=== PATIENT | female | born 1945 | race African-American/Black ===

== ENCOUNTER 2016-10-14 23:02 | Inpatient (IN) | payer OTHER ==
--- NOTE | 2016-10-14 23:54 | PDOC ---
History of Present Illness <Pauline Clinton - Last Filed: 10/15/16 00:22> - General History Source: Patient <DavidHarshad guerrero - Last Filed: 10/15/16 02:50> - General History Source: Patient, Family (Daughter) Exam Limitations: No Limitations - History of Present Illness Initial Comments: 10/15/16 00:19 The patient is a 70 year old female with a pertinent PMH of HTN and left-sided breast cancer who presents to the ED today with palpitations and lightheadedness this evening. The daughter states that after the patient had her radiation that the patient felt like her heart was going fast and had complaints of lightheadedness. She also noted that the patient felt weak and had to sit down. The palpitations and lightheadedness lasted for 30 minutes before she called the ambulance. The patient denies chest pain, SOB, diaphoresis , and LOC. The patient lives at home with her daughter. Denies: nausea, vomiting, diarrhea, fever, chills and cough. Surgical Hx: Lumpectomy, total knee replacement PCP: [facility] <Sally Schumacher - Last Filed: 10/15/16 02:53> - General Chief Complaint: Irregular Heart Beat Stated Complaint: PALPITATIONS Time Seen by Provider: 10/14/16 23:50 Past History <Pauline Clinton - Last Filed: 10/15/16 00:22> - Past Medical History HTN: Yes - Immunization History Immunization Up to Date: Yes - Psycho/Social/Smoking Cessation Hx Anxiety: No Suicidal Ideation: No Smoking History: Never smoked Have you smoked in the past 12 months: No Hx Alcohol Use: No Drug/Substance Use Hx: No Substance Use Type: None <Harshad Tyler - Last Filed: 10/15/16 02:50> <Sally Schumacher - Last Filed: 10/15/16 02:53> - Past Medical History Allergies/Adverse Reactions: Allergies Allergy/AdvReac Type Severity Reaction Status Date / Time No Known Allergies Allergy Verified 10/14/16 23:41 Home Medications: Ambulatory Orders Amlodipine Besylate 5 mg PO 10/14/16 Losartan 50Mg/Hctz 12.5MG [Hyzaar -] 12.5 mg PO DAILY 10/14/16 Review of Systems - Review of Systems Able to Perform ROS?: Yes Comments:: 10/15/16 00:19 COMPREHENSIVE ROS CONSTITUTIONAL: Absent: fever, chills, diaphoresis, malaise, loss of appetite HEENT: Absent: rhinorrhea, nasal congestion, throat pain, throat swelling, difficulty swallowing, mouth swelling, ear pain, eye pain, visual Changes CARDIOVASCULAR: +Lightheadedness, palpitations. Absent: chest pain, syncope, irregular heart rate, peripheral edema RESPIRATORY: Absent: cough, shortness of breath, dyspnea with exertion, orthopnea, wheezing, stridor, hemoptysis GASTROINTESTINAL: Absent: abdominal pain, abdominal distension, nausea, vomiting, diarrhea, constipation, melena, hematochezia GENITOURINARY: Absent: dysuria, frequency, urgency, hesitancy, hematuria, flank pain, genital pain MUSCULOSKELETAL: Absent: myalgia, arthralgia, joint swelling SKIN: Absent: rash, itching, pallor NEUROLOGIC: Absent: headache, focal weakness or paresthesias, dizziness, unsteady gait, seizure, mental status changes, bladder or bowel incontinence PSYCHIATRIC: Absent: anxiety, depression, suicidal or homicidal ideation, hallucinations. <Sally Schumacher - Last Filed: 10/15/16 02:53> *Physical Exam - Vital Signs Last Vital Signs Temp Pulse Resp BP Pulse Ox 98.7 F 113 H 18 95/64 98 10/14/16 23:37 10/14/16 23:37 10/14/16 23:37 10/14/16 23:37 10/14/16 23:37 <Pauline Clinton - Last Filed: 10/15/16 00:22> - Vital Signs Last Vital Signs Temp Pulse Resp BP Pulse Ox 98.7 F 113 H 18 95/64 98 10/14/16 23:37 10/14/16 23:37 10/14/16 23:37 10/14/16 23:37 10/14/16 23:37 <Harshad Tyler - Last Filed: 10/15/16 02:50> - Vital Signs Last Vital Signs Temp Pulse Resp BP Pulse Ox 98.7 F 113 H 18 95/64 98 10/14/16 23:37 10/14/16 23:37 10/14/16 23:37 10/14/16 23:37 10/14/16 23:37 - Physical Exam Comments: 10/15/16 00:20 COMPREHENSIVE PE GENERAL: Well developed, well nourished. Awake and alert. No acute distress. HEENT: Normocephalic, atraumatic. PERRLA, EOMI. No conjunctival pallor. Sclera are non- icteric. Moist mucous membranes. Oropharynx is clear. NECK: Supple. Full ROM. No JVD. Carotid pulses 2+ and symmetric, without bruits. No thyromegaly. No lymphadenopathy. CARDIOVASCULAR: Tachycardia. Regular rhythm. No murmurs, rubs, or gallops. Distal pulses are 2+ and symmetric. PULMONARY: No evidence of respiratory distress. Bibasilar crackles left greater than right. No wheezing, rales or rhonchi. ABDOMINAL: Soft. Non-tender. Non-distended. No rebound or guarding. No organomegaly. Normoactive bowel sounds. MUSCULOSKELETAL Normal range of motion at all joints. No bony deformities or tenderness. No CVA tenderness. EXTREMITIES: No cyanosis. No clubbing. No edema. No calf tenderness. SKIN: Warm and dry. Normal capillary refill. No rashes. No jaundice. NEUROLOGICAL: Alert, awake, appropriate. Cranial nerves 2-12 intact. Moving all extremities. No focal neurological deficits. PSYCHIATRIC: Cooperative. Good eye contact. Appropriate mood and affect. <Sally Schumacher - Last Filed: 10/15/16 02:53> Heart Score/ECG Review - ECG Impressions Comment:: 10/15/16 00:22 Atrial fibrillation with rapid ventricular complexes @113bpm Abnormal ECG <Pauline Clinton - Last Filed: 10/15/16 00:22> ED Treatment Course - LABORATORY CBC & Chemistry Diagram: 10/15/16 00:01 10/15/16 00:01 - ADDITIONAL ORDERS Additional order review: 10/15/16 00:01 RBC 3.60 MCV 88.9 MCHC 31.4 L RDW 16.9 H MPV 9.9 Neutrophils % 57.7 Lymphocytes % 24.4 Monocytes % 12.8 H Eosinophils % 4.2 Basophils % 0.9 <Pauline Clinton - Last Filed: 10/15/16 00:22> - LABORATORY CBC & Chemistry Diagram: 10/15/16 00:01 10/15/16 00:01 <Harshad Tyler - Last Filed: 10/15/16 02:50> - LABORATORY CBC & Chemistry Diagram: 10/15/16 00:01 10/15/16 00:01 - ADDITIONAL ORDERS Additional order review: 10/15/16 00:01 RBC 3.60 MCV 88.9 MCHC 31.4 L RDW 16.9 H MPV 9.9 Neutrophils % 57.7 Lymphocytes % 24.4 Monocytes % 12.8 H Eosinophils % 4.2 Basophils % 0.9 - RADIOLOGY Radiograph Interpretation: 10/15/16 02:52 EXAM: CTA CHEST Reviewed by imaging gas station clerk: Nodular scarring right middle lobe up to 1 cm thick and smaller nodules right upper and lower lobes, advise follow-up. No pulmonary embolism. No aortic dissection or aneurysm. Smal reticulonodular densities right upper lobe, probably atypical infection. No focal lung consolidation or pleural effusions. Small bilateral Bochdalek hernias containing fat. Small right renal cyst. Subcutaneous edema. <Sally Schumacher - Last Filed: 10/15/16 02:53> Medical Decision Making - Medical Decision Making 10/15/16 00:32 Dr. Tyler: The scribe's documentation has been prepared under my direction and personally reviewed by me in its entirery. I confirm that the note above accurately reflects all work, treatment, procedures, and medical decision making performed by me. 10/15/16 02:50 No PE see on Chest CTA. Pt heart improved. Pt ti be admitted to med surg <Harshad Tyler - Last Filed: 10/15/16 02:50> *DC/Admit/Observation/Transfer <Pauline Clinton - Last Filed: 10/15/16 00:22> - Discharge Dispostion Admit: Yes <Harshad Tyler - Last Filed: 10/15/16 02:50> - Attestations Scribe Attestion: 10/15/16 00:20 Documentation prepared by Sally Schumacher, acting as medical physics researcher for Harshad Tyler MD/DO. <Sally Schumacher - Last Filed: 10/15/16 02:53> Diagnosis at time of Disposition: New onset a-fib
[2016-10-14] MEDS ORDERED: SODIUM CHLORIDE 1,000 ML IV STA (23:56)
[2016-10-15 00:08] LABS: BASOPHIL 0.9 % (0-2.0); EOSINOPHIL 4.2 % (0-4.5); MCH 27.9 pg (25.7-33.7); MCHC 31.4 g/dl (32.0-36.0); MEAN CELL VOLUME 88.9 fl (80-96); MEAN PLT VOLUME 9.9 fl (7.5-11.1); NEUTROPHILS 57.7 % (42.8-82.8); PLATELET COUNT 164 K/MM3 (134-434); RDW 16.9 % (11.6-15.6); WHITE BLOOD COUNT 3.6 K/mm3 (4.0-10.0)
[2016-10-15 00:20] LABS: INR 1.21 (0.82-1.09); PROTHROMBIN TIME (PATIENT) 13.4 SEC (9.98-11.88)
[2016-10-15] MEDS ORDERED: dilTIAZem HCL 50 MG/10 ML - 10 ML VIAL ONE (00:27)
[2016-10-15] MEDS ORDERED: dilTIAZem HCL 50 MG/10 ML - 10 ML VIAL IVPUSH ONE (00:27)
[2016-10-15 00:29] LABS: ALBUMIN 3.2 g/dl (3.4-5.0); ANION GAP 9 (8-16); BILIRUBIN,TOTAL 0.3 mg/dL (0.2-1.0); CALCIUM 8.3 mg/dL (8.5-10.1); CO2 30 mmol/L (21-32); CREATININE 1.1 mg/dL (0.55-1.02); GLUCOSE,RANDOM 125 mg/dL (74-106); MAGNESIUM 1.8 mg/dL (1.8-2.4); SGOT/AST 18 U/L (15-37); SGPT/ALT 16 U/L (12-78); TOT PROT 5.9 g/dl (6.4-8.2)
[2016-10-15 00:32] LABS: ALK PHOS 64 U/L (45-117); TROPONIN I < 0.02 ng/ml (0.00-0.05)
--- NOTE | 2016-10-15 03:37 | HP ---
CHIEF COMPLAINT: "i had palpitations" PCP: Dr Shruthi Rodriguez HISTORY OF PRESENT ILLNESS: This is a 70 yo F with pmh of HTN, recent pericarditis s/p resolution on TTE 1 w ago, and Stage 2b L breast ca s/p lumpectomy, chemo (4 sessions finished 2 w ago) and radiation (5 sessions), who presents to ED with daughter due to new onset palpitations weakness and lightheadedness, one hour after radiation. She has a chronic cough due to postnasal drip for which she sees a economic development manager. She denied chest pain, LOC, LE edema, sob, confusion or h/a. She denies history of chest pain, palpitations or cardiac problems. In ED she was found to have a fib with RVR rate 113, rate controlled with cardizem. Her BP dropped to 87 systolic after cardizem but went up to 113/76 after NS IVF. She is now asymptomatic. ER course was notable for: (1)labs (2)CXR, CTA (3)cardizem, NS Recent Travel: denies PAST MEDICAL HISTORY: as above PAST SURGICAL HISTORY: lumpectomy, b/l knee replacement 2008 Social History: lives with daughter Smoking: denies Alcohol:denies Drugs: denies Family History: no history of arrythmia, CHF, CAD or CA Allergies No Known Allergies Allergy (Verified 10/14/16 23:41) HOME MEDICATIONS: Medication Instructions Recorded Amlodipine Besylate 5 mg PO 10/14/16 Losartan 50Mg/Hctz 12.5MG [Hyzaar 12.5 mg PO DAILY 10/14/16 -] REVIEW OF SYSTEMS CONSTITUTIONAL: Absent: fever, chills, loss of appetite, weight change HEENT: Absent: throat pain, difficulty swallowing, visual changes CARDIOVASCULAR: Absent: chest pain, syncope, peripheral edema RESPIRATORY: Absent: shortness of breath, orthopnea, wheezing, stridor, hemoptysis GASTROINTESTINAL: Absent: abdominal pain, abdominal distension, nausea, vomiting, diarrhea, constipation GENITOURINARY: Absent: dysuria,flank pain MUSCULOSKELETAL: Absent: myalgia, arthralgia SKIN: Absent: rash HEMATOLOGIC/IMMUNOLOGIC: Absent: easy bleeding, easy bruising ENDOCRINE: Absent: unexplained weight gain, unexplained weight loss NEUROLOGIC: Absent: headache, focal weakness or paresthesias, seizure, mental status changes PSYCHIATRIC: Absent: anxiety, depression PHYSICAL EXAMINATION Vital Signs - 24 hr 10/15/16 02:58 Pulse Rate [ 83 Apical] Respiratory 20 Rate Blood Pressure 113/76 [Right Arm] O2 Sat by Pulse 98 Oximetry (%) Laboratory Tests 10/15/16 10/15/16 10/15/16 00:01 00:01 00:01 WBC 3.6 L Hgb 10.0 L Hct 32.0 L Plt Count 164 INR 1.21 H D-Dimer 1382 H Sodium 142 Potassium 3.6 Chloride 103 Carbon Dioxide 30 Anion Gap 9 BUN 15 Creatinine 1.1 H Creat Clearance w eGFR 49.39 Random Glucose 125 H Lactic Acid Calcium 8.3 L Magnesium 1.8 Total Bilirubin 0.3 AST 18 ALT 16 Alkaline Phosphatase 64 Creatine Kinase 93 Troponin I < 0.02 Total Protein 5.9 L Albumin 3.2 L 10/15/16 01:10 WBC Hgb Hct Plt Count INR D-Dimer Sodium Potassium Chloride Carbon Dioxide Anion Gap BUN Creatinine Creat Clearance w eGFR Random Glucose Lactic Acid 1.364 Calcium Magnesium Total Bilirubin AST ALT Alkaline Phosphatase Creatine Kinase Troponin I Total Protein Albumin GENERAL: Awake, alert, and fully oriented, in no acute distress. HEAD: Normal with no signs of trauma. EYES: Pupils equal, round and reactive to light, extraocular movements intact, sclera anicteric, conjunctiva clear. EARS, NOSE, THROAT: Moist mucous membranes. NECK: supple without JVD LUNGS: Breath sounds equal, clear to auscultation bilaterally. HEART: Regular rate and irregularly irregular rhythm, normal S1 and S2 ABDOMEN: Soft, nontender, not distended, normoactive bowel sounds MUSCULOSKELETAL: No CVA tenderness. UPPER EXTREMITIES: 2+ pulses, warm, well-perfused. No cyanosis. No peripheral edema. LOWER EXTREMITIES: 2+ pulses, warm, well-perfused. No calf tenderness. No peripheral edema. NEUROLOGICAL: Cranial nerves II-XII grossly intact. Normal speech. PSYCHIATRIC: Cooperative. Good eye contact. Appropriate mood and affect. SKIN: Warm, dry ASSESSMENT/PLAN: This is a 70 yo F with pmh of HTN and Stage 2b L breast ca s/p lumpectomy, chemo (4 sessions finished 2 w ago) and radiation (5 sessions), who presents to ED with daughter due to new onset palpitations weakness and lightheadedness, one hour after radiation. EKG: a fib with RVR rate 113 CXR unremarkable Chest CTA no PE New onset atrial fibrillation with RVR -CHADSVAS=3 -rate controlled with cardizem 10, 50 -currently asymptomatic -cardiology consult -tele monitoring -need for a/c discussed -TTE done 1 w ago, contact PCP for results -lipid panel, a1c, tfts -joe 120 BEAN vs CKD -creat 1.1 -IVF hydration Hypotension -associated with cardizem -now normotensive -IV hydration HTN -normotensive; hold BP meds for now Stage 2b L breast ca -s/p lumpectomy, chemo (4 sessions finished 2 w ago) and radiation (5 sessions) -f/u with oncology outpatient FEN NS @100 Lytes stable Joe, diet Na restricted diet Dispo: admit to tele. Problem List - Problem (1) New onset a-fib Code(s): I48.91 - UNSPECIFIED ATRIAL FIBRILLATION (2) HTN (hypertension) Code(s): I10 - ESSENTIAL (PRIMARY) HYPERTENSION (3) Breast cancer Code(s): C50.919 - MALIGNANT NEOPLASM OF UNSP SITE OF UNSPECIFIED FEMALE BREAST Visit type - Emergency Visit Emergency Visit: Yes ED Registration Date: 10/15/16 Care time: The patient presented to the Emergency Department on the above date and was hospitalized for further evaluation of their emergent condition. - New Patient This patient is new to me today: Yes Date on this admission: 10/15/16 - Critical Care Critical Care patient: No
--- NOTE | 2016-10-15 03:37 | PN ---
<Ann Marie Arthur - Last Filed: 10/15/16 03:37> Teaching Attending Note Name of Resident: Bella Anna <Beverly Herrera - Last Filed: 10/15/16 05:01> Teaching Attending Note ATTENDING PHYSICIAN STATEMENT I saw and evaluated the patient. I reviewed the resident's note and discussed the case with the resident. I agree with the resident's findings and plan as documented. SUBJECTIVE: 70 year old female who presents with palpitations and lightheadedness since this evening that lasted for 30 minutes. Patient notes that the symptoms developed shortly after her radiation treatment today at 6 pm. Patient had an ECHO done 1 month ago and as per daughter she reports that it showed pericarditis and was repeated 10 days ago and according to daughter the pericarditis resolved on new ECHO. As per daughter the patient has possible history of chronic bronchitis or bronchiectasis? and has had productive cough for over 10 year patient states that she has yellow sputum. The patient denies fever, chills, chest pain, SOB, diaphoresis, nausea, vomiting , diarrhea and LOC. PMH: HTN, left-sided breast ca s/p lumpectomy (chemo 2 weeks ago radiation session x5), s/p history of pericarditis, chronic bronchitis, ?bronchiectasis. PSH: Lumpectomy with lymph node resection, total knee replacement FMH: Not contributory SH: Denies smoking, alcohol use, illicit drug use, lives at home with daughter. 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 PERRLA, EOMI. Moist mucosa. No JVD LUNGS: Decreased breath sounds , Right lower lobe wheezing. No distress, speaks full sentences. HEART: Regular rate and rhythm, normal S1 and S2, no murmurs, rubs or gallops, peripheral pulses normal and equal bilaterally. ABDOMEN: Soft, nontender, normoactive bowel sounds. No guarding, no rebound. No masses EXTREMITIES: Normal inspection, Normal range of motion, no edema. No clubbing or cyanosis. NEUROLOGICAL: Cranial nerves II through XII grossly intact. Normal speech, normal gait, no focal sensorimotor deficits SKIN: Dimpling of left breast tissue growth longitudinal scar about 5-6 cm, slightly retracted nipple LT Warm, Dry, normal turgor, no rashes or lesions noted. LYMPH: No palpable cervical or axillary lymph nodes. LABS: CBCD WBC 3.6 K/mm3 (4.0-10.0) L 10/15/16 00:01 RBC 3.60 M/mm3 (3.60-5.2) 10/15/16 00:01 Hgb 10.0 GM/dL (10.7-15.3) L 10/15/16 00:01 Hct 32.0 % (32.4-45.2) L 10/15/16 00:01 MCV 88.9 fl (80-96) 10/15/16 00:01 MCHC 31.4 g/dl (32.0-36.0) L 10/15/16 00:01 RDW 16.9 % (11.6-15.6) H 10/15/16 00:01 Plt Count 164 K/MM3 (134-434) 10/15/16 00:01 MPV 9.9 fl (7.5-11.1) 10/15/16 00:01 CMP Sodium 142 mmol/L (136-145) 10/15/16 00:01 Potassium 3.6 mmol/L (3.5-5.1) 10/15/16 00:01 Chloride 103 mmol/L (98-107) 10/15/16 00:01 Carbon Dioxide 30 mmol/L (21-32) 10/15/16 00:01 Anion Gap 9 (8-16) 10/15/16 00:01 BUN 15 mg/dL (7-18) 10/15/16 00:01 Creatinine 1.1 mg/dL (0.55-1.02) H 10/15/16 00:01 Creat Clearance w eGFR 49.39 (>60) 10/15/16 00:01 Calcium 8.3 mg/dL (8.5-10.1) L 10/15/16 00:01 Total Bilirubin 0.3 mg/dL (0.2-1.0) 10/15/16 00:01 AST 18 U/L (15-37) 10/15/16 00:01 ALT 16 U/L (12-78) 10/15/16 00:01 Alkaline Phosphatase 64 U/L (45-117) 10/15/16 00:01 Total Protein 5.9 g/dl (6.4-8.2) L 10/15/16 00:01 Albumin 3.2 g/dl (3.4-5.0) L 10/15/16 00:01 IMAGING: CTA CHEST Impression: Nodular scarring right middle lobe up to 1 cm thick and smaller nodules right upper and lower lobes, advise follow-up. No pulmonary embolism. No aortic dissection or aneurysm. Smal reticulonodular densities right upper lobe, probably atypical infection. No focal lung consolidation or pleural effusions. Small bilateral Bochdalek hernias containing fat. Small right renal cyst. Subcutaneous edema. ASSESSMENT AND PLAN: New onset Afib possible secondary to radiation therapy - Rate control with Cardizem 120 mg PO daily - Admit to Tele - ECHO done last week follow up with PMD for results - Lovenox 1.5 mg/kg q24h daily - Cardiology consult consider anticoagulation therapy as CHADS-VASc of 3 - Repeat cardiac enzymes - TSH levels BEAN vs. CKD - IVF - Repeat BMP Breast cancer - s/p radiation and chemotherapy Chronic bronchitis/bronchiectasis - Follow up with manager of financial for medical records - Pulmonary consult Normocytic anemia most likely secondary to anemia of chronic disease vs iron deficiency HTN - confirm home medication - continue Hydrochlorothiazide 12.5 mg - hold Losartan for possible BEAN Documentation prepared by Beverly Herrera, acting as medical office technology instructor for Ann Marie Arthur M.D.
[2016-10-15] MEDS ORDERED: SODIUM CHLORIDE 1,000 ML IV SCH (03:45)
[2016-10-15 06:48] LABS: MCH 29.2 pg (25.7-33.7); MCHC 32.7 g/dl (32.0-36.0); MEAN CELL VOLUME 89.3 fl (80-96); MEAN PLT VOLUME 8.8 fl (7.5-11.1); PLATELET COUNT 149 K/MM3 (134-434); RDW 17.4 % (11.6-15.6); WHITE BLOOD COUNT 3.5 K/mm3 (4.0-10.0)
[2016-10-15] MEDS ORDERED: ENOXAPARIN NA (PORCINE) 60 MG/0.6 ML DISP.SYRIN SQ ONE (09:09)
--- NOTE | 2016-10-15 09:13 | PN ---
Progress Note (short form) - Note Progress Note: Cardiology Consult Dicated 70F with Breast CA s/p lumpectomy, chemo undergoing XR, HTN presented to ER with dizziness and palpitations associated with dyspnea and was found to be in AF at 113 bpm (of unclear onset). CTA negative for PE. Now in NSR. REC: 1. Tele 2. Echo for EF assessment 3. Check TSH 4. Cycle cardiac enzymes 5. CHADS 2 Vasc score is 3 (HTN, female, age >65)): merits AC, at least for one month. Will need close outpatient f/u and monitoring to assure AF not paroxysmal prior to making final decision re length of AC.
[2016-10-15 09:32] LABS: CREATININE 0.8 mg/dL (0.55-1.02); PHOSPHOROUS 3.6 mg/dL (2.5-4.9)
--- NOTE | 2016-10-15 09:49 | CONS ---
DATE OF CONSULTATION: 10/15/2016 REASON FOR CONSULTATION: The consultation is requested by Ankur Burgos MD, for atrial fibrillation. HISTORY OF PRESENT ILLNESS: The patient is a 70-year-old female with past medical history of breast cancer status post lumpectomy, chemotherapy, currently undergoing radiation; hypertension, who presented to the emergency room yesterday after her radiation therapy complaining of dizziness, palpitations, associated shortness of breath, and she was found to be in atrial fibrillation at 113 beats per minute, of unclear onset. The patient denies prior history of atrial fibrillation. She states that she began feeling this way yesterday after radiation but has had intermittent palpitations over the last few weeks. She denies prior myocardial infarction or coronary history. She has no history of prior coronary interventions. Currently she is in the emergency department in no distress, back in normal sinus rhythm. She was given diltiazem 10 mg IV in the emergency department. PAST MEDICAL HISTORY: As above. MEDICATIONS: Her home medications include: 1. Hyzaar 50/12.5 daily. 2. Amlodipine 5 mg daily. ALLERGIES: She has no known drug allergies. FAMILY HISTORY: Noncontributory. SOCIAL HISTORY: She is a nonsmoker. No illicit drugs, no alcohol. PHYSICAL EXAMINATION: Vital Signs: Temperature 98.7, pulse 72, currently in sinus. Blood pressure 122/76. Oxygen saturation 99% on room air. Neck: No JVD. Heart: S1, S2 regular, no murmurs. Chest: Bilateral rhonchi. No active wheezing, no rales. Abdomen: Soft, nontender. Extremities: Warm, no edema. There is an old left total knee replacement scar which appears clean, dry, and intact. LABORATORY: CBC: White count 3.5, hematocrit 28.4, platelets 149. D-dimer was elevated at 1382, which prompted a CTA of the chest, which was negative for pulmonary embolism and showed possible bilateral nodular and linear opacities, possibly infectious. Her EKG on presentation showed atrial fibrillation at 113 beats per minute with normal axis, no Q waves. Nonspecific ST changes. Blood culture are pending. IMPRESSION: A 70-year-old female with history of breast cancer status post lumpectomy, chemotherapy, currently undergoing radiation, presented with palpitations, shortness of breath and dizziness, found to be in atrial fibrillation of unclear onset. CT angiogram negative for pulmonary embolism, now back in normal sinus rhythm. RECOMMENDATIONS: 1. Telemetry. 2. [id number] is 3, which merits anticoagulation for at least 1 month. She will need close outpatient monitoring to assure there is no recurrence. Length of anticoagulation to be determined pending clinical course over the next month. 3. Echocardiogram for assessment of left ventricular function. 4. TSH. 5. Cycle cardiac enzymes. 6. Will start on Cardizem CD 120 mg daily to prevent further recurrence. Thank you for the consultation. ROD ADAMES M.D. [id number]
[2016-10-15] MEDS ORDERED: ENOXAPARIN NA (PORCINE) 120 MG/0.8 ML DISP.SYRIN SQ SCH (10:00)
[2016-10-15] MEDS ORDERED: ENOXAPARIN NA (PORCINE) 40 MG/0.4 ML DISP.SYRIN SQ SCH (10:00)
[2016-10-15 11:17] VITALS: BMI 25.8
[2016-10-15 11:34] LABS: TROPONIN I 0.2 ng/ml (0.00-0.05)
[2016-10-15] MEDS ORDERED: INFLUENZA VACCINE 45 MCG/0.5 ML (MDV 16-17) IM ONE (12:00)
[2016-10-15] MEDS ORDERED: PNEUMOC 13-VAL CONJ-DIP CRM/PF 0.5 ML DISP.SYRIN IM ONE (12:00)
--- NOTE | 2016-10-15 14:40 | PN ---
Physical Exam: SUBJECTIVE: Patient seen and examined OBJECTIVE: Vital Signs Period Temp Pulse Resp BP Sys/Gallegos Pulse Ox Last 24 Hr 98.2 F-98.4 F 67-88 18-20 112-133/76-82 99-100 GENERAL: Awake, alert, and fully oriented, in no acute distress. HEAD: Normal with no signs of trauma. EYES: Pupils equal, round and reactive to light, extraocular movements intact, sclera anicteric, conjunctiva clear. EARS, NOSE, THROAT: Moist mucous membranes. NECK: supple without JVD LUNGS: Breath sounds equal, clear to auscultation bilaterally. HEART: Regular rate and irregularly irregular rhythm, normal S1 and S2 ABDOMEN: Soft, nontender, not distended, normoactive bowel sounds MUSCULOSKELETAL: No CVA tenderness. UPPER EXTREMITIES: 2+ pulses, warm, well-perfused. No cyanosis. No peripheral edema. LOWER EXTREMITIES: 2+ pulses, warm, well-perfused. No calf tenderness. No peripheral edema. NEUROLOGICAL: Cranial nerves II-XII grossly intact. Normal speech. PSYCHIATRIC: Cooperative. Good eye contact. Appropriate mood and affect. SKIN: Warm, dry Laboratory Results - last 24 hr 10/15/16 10/15/16 10/15/16 06:30 06:30 06:30 WBC 3.5 L RBC 3.18 L Hgb 9.3 L Hct 28.4 L MCV 89.3 MCHC 32.7 RDW 17.4 H Plt Count 149 MPV 8.8 D Sodium 143 Potassium 3.7 Chloride 108 H Carbon Dioxide 30 Anion Gap 5 L BUN 16 Creatinine 0.8 D Random Glucose 98 D Hemoglobin A1c % 5.5 Calcium 8.0 L Phosphorus 3.6 Magnesium 2.0 Creatine Kinase 81 Troponin I 0.20 H Triglycerides 37 Cholesterol 156 Total LDL Cholesterol 77 HDL Cholesterol 72 H Active Medications Generic Name Dose Route Start Last Admin Trade Name Freq PRN Reason Stop Dose Admin Diltiazem HCl 120 mg 10/15/16 10:00 10/15/16 11:50 Cardizem Cd - PO 120 mg DAILY [facility] Administration Enoxaparin Sodium 120 mg 10/15/16 10:00 10/15/16 09:11 Lovenox - SQ 120 mg DAILY [facility] Administration Sodium Chloride 1,000 mls @ 100 mls/hr 10/15/16 03:45 10/15/16 04:03 Normal Saline - IV 100 mls/hr ASDIR RICARDO Administration CXR unremarkable Chest CTA no PE ASSESSMENT/PLAN: This is a 70 yo F with pmh of HTN and Stage 2b L breast ca s/p lumpectomy, chemo (4 sessions finished 2 w ago) and radiation (5 sessions), who presents to ED with daughter due to new onset palpitations weakness and lightheadedness, one hour after radiation. New onset atrial fibrillation with RVR -CHADSVAS=3 -rate controlled with cardizem 120mg daily -currently asymptomatic - Cycle cardiac enzymes -cardiology consult appreciated -tele monitoring -on lovenox 120mg daily - follow ECHO and tsh BEAN resolved after IV fluid HTN hold home meds for now on cardiazem Bp controlled Stage 2b L breast ca -s/p lumpectomy, chemo (4 sessions finished 2 w ago) and radiation (5 sessions) -f/u with oncology outpatient fluid : orally allowed electrolyte : normal nutrition: low salt diet dvt pro: on lovenox gi pro; not required Dispo: admit to tele. Visit type - Emergency Visit Emergency Visit: Yes ED Registration Date: 10/15/16 Care time: The patient presented to the Emergency Department on the above date and was hospitalized for further evaluation of their emergent condition. - New Patient This patient is new to me today: Yes Date on this admission: 10/15/16 - Critical Care Critical Care patient: No
--- NOTE | 2016-10-15 16:35 | EKG ---
Test Reason : Blood Pressure : / mmHG Vent. Rate : 113 BPM Atrial Rate : 133 BPM P-R Int : 000 ms QRS Dur : 088 ms QT Int : 346 ms P-R-T Axes : 000 049 066 degrees QTc Int : 474 ms ATRIAL FIBRILLATION WITH RAPID VENTRICULAR RESPONSE ABNORMAL ECG NO PREVIOUS ECGS AVAILABLE Confirmed by MAUREEN FLOWERS MD ([id number]) on 10/15/2016 4:34:56 PM Referred By: Confirmed By:MAUREEN FLOWERS MD
--- NOTE | 2016-10-15 19:37 | PN ---
Teaching Attending Note Name of Resident: Javid Leblanc ATTENDING PHYSICIAN STATEMENT I saw and evaluated the patient. I reviewed the resident's note and discussed the case with the resident. I agree with the resident's findings and plan as documented. SUBJECTIVE: OBJECTIVE: Vital Signs Temperature 98.2 F 10/15/16 16:00 Pulse Rate 74 10/15/16 16:00 Respiratory Rate 18 10/15/16 16:00 Blood Pressure 112/63 10/15/16 16:00 O2 Sat by Pulse Oximetry (%) 100 10/15/16 16:00 GENERAL: Awake, alert, and fully oriented, in no acute distress. HEAD: Normal with no signs of trauma. EYES: Pupils equal, round and reactive to light, extraocular movements intact, sclera anicteric, conjunctiva clear. EARS, NOSE, THROAT: Moist mucous membranes. NECK: supple without JVD LUNGS: Breath sounds equal, clear to auscultation bilaterally. HEART: Regular rate and irregularly irregular rhythm, normal S1 and S2 ABDOMEN: Soft, nontender, not distended, normoactive bowel sounds MUSCULOSKELETAL: No CVA tenderness. UPPER EXTREMITIES: 2+ pulses, warm, well-perfused. No cyanosis. No peripheral edema. LOWER EXTREMITIES: 2+ pulses, warm, well-perfused. No calf tenderness. No peripheral edema. NEUROLOGICAL: Cranial nerves II-XII grossly intact. Normal speech. PSYCHIATRIC: Cooperative. Good eye contact. Appropriate mood and affect. SKIN: Warm, dry CBCD WBC 3.5 K/mm3 (4.0-10.0) L 10/15/16 06:30 RBC 3.18 M/mm3 (3.60-5.2) L 10/15/16 06:30 Hgb 9.3 GM/dL (10.7-15.3) L 10/15/16 06:30 Hct 28.4 % (32.4-45.2) L 10/15/16 06:30 MCV 89.3 fl (80-96) 10/15/16 06:30 MCHC 32.7 g/dl (32.0-36.0) 10/15/16 06:30 RDW 17.4 % (11.6-15.6) H 10/15/16 06:30 Plt Count 149 K/MM3 (134-434) 10/15/16 06:30 MPV 8.8 fl (7.5-11.1) D 10/15/16 06:30 CMP Sodium 143 mmol/L (136-145) 10/15/16 06:30 Potassium 3.7 mmol/L (3.5-5.1) 10/15/16 06:30 Chloride 108 mmol/L (98-107) H 10/15/16 06:30 Carbon Dioxide 30 mmol/L (21-32) 10/15/16 06:30 Anion Gap 5 (8-16) L 10/15/16 06:30 BUN 16 mg/dL (7-18) 10/15/16 06:30 Creatinine 0.8 mg/dL (0.55-1.02) D 10/15/16 06:30 Creat Clearance w eGFR 49.39 (>60) 10/15/16 00:01 Random Glucose 98 mg/dL (74-106) D 10/15/16 06:30 Calcium 8.0 mg/dL (8.5-10.1) L 10/15/16 06:30 Total Bilirubin 0.3 mg/dL (0.2-1.0) 10/15/16 00:01 AST 18 U/L (15-37) 10/15/16 00:01 ALT 16 U/L (12-78) 10/15/16 00:01 Alkaline Phosphatase 64 U/L (45-117) 10/15/16 00:01 Total Protein 5.9 g/dl (6.4-8.2) L 10/15/16 00:01 Albumin 3.2 g/dl (3.4-5.0) L 10/15/16 00:01 CARDIAC ENZYMES Creatine Kinase 81 IU/L (26-192) 10/15/16 06:30 Troponin I 0.20 ng/ml (0.00-0.05) H 10/15/16 06:30 Current Medications Generic Name Dose Route Start Last Admin Trade Name Edith PRN Reason Stop Dose Admin Diltiazem HCl 120 mg 10/15/16 10:00 10/15/16 11:50 Cardizem Cd - PO 120 mg DAILY [facility] Administration Enoxaparin Sodium 120 mg 10/15/16 10:00 10/15/16 09:11 Lovenox - SQ 120 mg DAILY [facility] Administration Medication Instructions Recorded Amlodipine Besylate 5 mg PO DAILY 10/14/16 Losartan 50Mg/Hctz 12.5MG [Hyzaar 12.5 mg PO DAILY 10/14/16 -] ASSESSMENT AND PLAN: This is a 70 yo F with pmh of HTN and Stage 2b L breast ca s/p lumpectomy, chemo (4 sessions finished 2 w ago) and radiation (5 sessions), who presents to ED with daughter due to new onset palpitations weakness and lightheadedness, one hour after radiation. # New onset atrial fibrillation with RVR, rate is controlled now on Cardizem will continue with 120mg daily.CHADSVAS=3 on Eliquis will continue. Seen by . # BEAN resolved s/p IV fluid #HTN controlled hold home meds since patient in on cardiazem #Stage 2b L breast ca -s/p lumpectomy, chemo (4 sessions finished 2 w ago) and radiation (5 sessions) -f/u with oncology outpatient DVT Px: lovenox
[2016-10-16 07:21] VITALS: BP 114/82; PULSE 66; TEMP 98
[2016-10-16 08:28] LABS: MCH 29.2 pg (25.7-33.7); MCHC 32.8 g/dl (32.0-36.0); MEAN CELL VOLUME 89.2 fl (80-96); MEAN PLT VOLUME 9.7 fl (7.5-11.1); NEUTROPHILS 53.8 % (42.8-82.8); PLATELET COUNT 143 K/MM3 (134-434); RDW 17.2 % (11.6-15.6); WHITE BLOOD COUNT 2.8 K/mm3 (4.0-10.0)
[2016-10-16 08:59] LABS: CALCIUM 8.3 mg/dL (8.5-10.1); CREATININE 0.7 mg/dL (0.55-1.02); THYROID STIMULATING HORMONE 3.95 uIU/ml (0.358-3.74)
--- NOTE | 2016-10-16 09:39 | PN ---
Progress Note, Physician Chief Complaint: remain in sinus Echo w/ moderate No DVT LE 2nd TnI 0.2, CK normal History of Present Illness: feels better - Current Medication List Current Medications: Active Medications Diltiazem HCl (Cardizem Cd -) 120 mg PO DAILY [facility] Last Admin: 10/15/16 11:50 Dose: 120 mg Enoxaparin Sodium (Lovenox -) 120 mg SQ DAILY [facility] Last Admin: 10/15/16 09:11 Dose: 120 mg - Objective Vital Signs: Vital Signs Temperature 98.0 F 10/16/16 07:16 Pulse Rate 66 10/16/16 07:16 Respiratory Rate 20 10/16/16 07:22 Blood Pressure 114/82 10/16/16 07:16 O2 Sat by Pulse Oximetry (%) 96 10/16/16 07:22 Constitutional: Yes: Calm Cardiovascular: Yes: Regular Rate and Rhythm Respiratory: Yes: CTA Bilaterally Gastrointestinal: Yes: Soft Edema: No Neurological: Yes: Alert Labs: CBC, BMP 10/16/16 06:05 10/16/16 06:05 INR, PTT INR 1.21 (0.82-1.09) H 10/15/16 00:01 Laboratory Tests 10/15/16 10/15/16 10/16/16 00:01 06:30 06:05 WBC Hgb Plt Count Potassium 3.7 Creatinine 0.7 Troponin I < 0.02 0.20 H 10/16/16 06:05 WBC 2.8 L Hgb 9.2 L Plt Count 143 Potassium Creatinine Troponin I Assessment/Plan Cardiology Consult Dicated 70F with Breast CA s/p lumpectomy, chemo undergoing XR, HTN presented to ER with dizziness and palpitations associated with dyspnea and was found to be in AF at 113 bpm (of unclear onset). CTA negative for PE. Now in sinus. 1. Moderate : f/u echo 9-12 months 2. PAF: Continue Cardize, Can change Lovenox to eliquis 5mg PO BID. Would plan to AC for at least 1 month with close outpatient monitoring with serial ECG and holter to assure no recurrence. If no recurrece, can consider d/c AC in 4-6 weeks. 3. Obtain 3rd TnI this AM.
[2016-10-16] MEDS ORDERED: APIXABAN 5 MG TABLET PO SCH (10:00)
[2016-10-16 10:28] LABS: TROPONIN I 0.05 ng/ml (0.00-0.05)
--- NOTE | 2016-10-16 11:55 | DS ---
Physical Exam: SUBJECTIVE: Patient seen and examined Patient is feeling well, with no acute distress, no shortness of breath, no nausea or vomiting. No palpitations. OBJECTIVE: Vital Signs Temperature 98.0 F 10/16/16 07:16 Pulse Rate 66 10/16/16 07:16 Respiratory Rate 20 10/16/16 07:22 Blood Pressure 114/82 10/16/16 07:16 O2 Sat by Pulse Oximetry (%) 96 10/16/16 07:22 PHYSICAL EXAM GENERAL: Awake, alert, and fully oriented, in no acute distress. HEAD: Normal with no signs of trauma. EYES: Pupils equal, round and reactive to light, extraocular movements intact, sclera anicteric, conjunctiva clear. EARS, NOSE, THROAT: Moist mucous membranes. NECK: supple without JVD LUNGS: Breath sounds equal, clear to auscultation bilaterally. HEART: irregularly irregular rhythm with rate controlled , normal S1 and S2 ABDOMEN: Soft, nontender, not distended, normoactive bowel sounds MUSCULOSKELETAL: No CVA tenderness. EXTREMITIES: 2+ pulses, warm, well-perfused. No calf tenderness. No peripheral edema. NEUROLOGICAL: Cranial nerves II-XII grossly intact. Normal speech. PSYCHIATRIC: Cooperative. Good eye contact. Appropriate mood and affect. SKIN: Warm, dry, LABS Current Medications Generic Name Dose Route Start Last Admin Trade Name Keyshawnq PRN Reason Stop Dose Admin Apixaban 5 mg 10/16/16 10:00 10/16/16 10:19 Eliquis - PO 5 mg BID [facility] Administration Diltiazem HCl 120 mg 10/15/16 10:00 10/16/16 09:45 Cardizem Cd - PO 120 mg DAILY [facility] Administration Medication Instructions Recorded Amlodipine Besylate 5 mg PO DAILY 10/14/16 Losartan 50Mg/Hctz 12.5MG [Hyzaar 12.5 mg PO DAILY 10/14/16 -] Laboratory Results - last 24 hr 10/16/16 10/16/16 10/16/16 06:05 06:05 06:05 WBC 2.8 L RBC 3.15 L Hgb 9.2 L Hct 28.1 L MCV 89.2 MCHC 32.8 RDW 17.2 H Plt Count 143 MPV 9.7 D Neutrophils % 53.8 Lymphocytes % 24.0 Monocytes % 16.2 H Eosinophils % 5.0 H Basophils % 1.0 Sodium 144 Potassium 3.7 Chloride 108 H Carbon Dioxide 30 Anion Gap 6 L BUN 14 Creatinine 0.7 Random Glucose 82 Calcium 8.3 L Creatine Kinase 81 Cancelled Troponin I 0.05 Cancelled TSH 3.95 H CXR unremarkable Chest CTA no PE Laboratory Tests 10/15/16 10/15/16 10/16/16 00:01 06:30 06:05 Troponin I < 0.02 0.20 H 0.05 HOSPITAL COURSE: Date of Admission:10/15/16 Date of Discharge: 10/16/16 This is a 70 yo F with pmh of HTN and Stage 2b L breast ca s/p lumpectomy, chemo (4 sessions finished 2 w ago) and radiation (5 sessions), who presents to ED with daughter due to new onset palpitations weakness and lightheadedness, one hour after radiation. # New onset atrial fibrillation with RVR, rate is controlled now on Cardizem will continue with 120mg daily.CHADSVAS=3 on Eliquis will continue. Seen by with the recommendation of : Moderate : f/u echo 9-12 months. Would plan to AC for at least 1 month with close outpatient monitoring with serial ECG and holter to assure no recurrence. If no reoccurrence; as per cardiology to consider to d/c AC in 4-6 weeks. Edvin Ft4 and TSH as outpatient to be repeated. # BEAN resolved s/p IV fluid #HTN controlled hold home meds since patient in on cardiazem #Stage 2b L breast ca -s/p lumpectomy, chemo (4 sessions finished 2 w ago) and radiation (5 sessions) -f/u with oncology outpatient Time taken to discharge 40 minutes. Follow with in a week period Follow with crisis intervention specialist within a week to recheck TSH, FT4 Minutes to complete discharge: 40 Discharge Summary Reason For Visit: NEW ONSET A-FIB GENERALIZED MALAISE Current Active Problems Breast cancer (Acute) HTN (hypertension) (Acute) New onset a-fib (Acute) - Home Medications Comprehensive Discharge Medication List: Ambulatory Orders Amlodipine Besylate 5 mg PO DAILY 10/14/16 Losartan 50Mg/Hctz 12.5MG [Hyzaar -] 12.5 mg PO DAILY 10/14/16 This patient is new to me today: No Emergency Visit: Yes ED Registration Date: 10/15/16 Care time: The patient presented to the Emergency Department on the above date and was hospitalized for further evaluation of their emergent condition. Critical Care patient: No - Discharge Referral Referred to [facility] No
== END 2016-10-16 13:28 | disposition home or self-care (01) | DRG 201 ==
LOC: JER 23:02 → JERBED 10-15 02:53 → UNDOADMIN 10-15 02:53 → JERBED 10-15 03:37 → J4W 10-15 13:58
PROVIDERS: ADMIT Internal Medicine; ATTEND Internal Medicine
DX: I48.91 Unspecified atrial fibrillation (principal); R00.2 Palpitations; C50.912 Malignant neoplasm of unspecified site of left female breast; N17.9 Acute kidney failure, unspecified; I12.9 Hypertensive chronic kidney disease with stage 1 through stage 4 chronic kidney disease, or unspecified chronic kidney disease; N18.9 Chronic kidney disease, unspecified; J42 Unspecified chronic bronchitis; D63.8 Anemia in other chronic diseases classified elsewhere; Z96.653 Presence of artificial knee joint, bilateral
CPT/HCPCS: 36415; 71010-TC; 71275-TC; 80048; 80053; 80061; 82550; 83036; 83605; 83721; 83735; 84100; 84443; 84484; 85025; 85027; 85379; 85610; 87040; 90670; 93005; 93010; 93306-TC; 93970-TC; 99284-25; G0008; Q2037